=== PATIENT | male | born 1990 | race African-American/Black ===

== ENCOUNTER 2018-08-24 10:10 | Emergency (ER) | payer OTHER ==
[~2018-08-24] VITALS: Ht 175.3 cm; Wt 56.7 kg
[2018-08-24 10:40] LABS: URINE BILIRUBIN NEGATIVE (Negative); URINE BLOOD NEGATIVE (Negative); URINE CLARITY CLEAR; URINE COLOR YELLOW; URINE GLUCOSE-RANDOM NEGATIVE (Negative); URINE KETONES NEGATIVE (Negative); URINE LEUKOCYTES-REFLEX NEGATIVE (Negative); URINE NITRITE-REFLEX NEGATIVE (Negative); URINE PROTEIN TRACE (Negative); URINE SPECIFIC GRAVITY 1.015 (1.005-1.030)
[2018-08-24 10:42] LABS: ABSOLUTE BASOPHILS 0.1 thou/uL (0.0-0.2); ABSOLUTE EOSINOPHILS 0.1 thou/uL (0.0-0.7); ABSOLUTE LYMPHOCYTES 1.3 thou/uL (0.8-5.3); ABSOLUTE MONOCYTES 0.4 thou/uL (0.0-1.2); ABSOLUTE NEUTROPHILS 2.3 thou/uL (1.6-8.1); BASOPHILS 1.9 %; EOSINOPHILS 1.9 %; HEMATOCRIT 43.4 % (42.0-52.0); HEMOGLOBIN 14.7 gm/dL (14.0-18.0); LYMPHOCYTES 31.1 %; MCH 29.4 pg (26.0-34.0); MCHC 33.8 g/dL (28.0-37.0); MONOCYTES 9.7 %; MPV 7.3 fl. (7.2-11.1); NUCLEATED RBCS 0 /100WBC; PLATELET COUNT* 243 thou/uL (150-400); POLYS 55.4 %; RBC 4.99 mil/uL (4.50-6.00); RDW-CV 13.1 % (10.5-14.5); WBC 4.1 thou/uL (4.0-11.0)
[2018-08-24 10:54] LABS: INFLUENZA A ANTIGEN None Detected (None Detect); INFLUENZA B ANTIGEN None Detected (None Detect)
[2018-08-24 11:02] LABS: ALBUMIN 3.8 g/dL (3.4-5.0); CREATININE 1.1 mg/dL (0.6-1.3); POTASSIUM 3.7 mmol/L (3.5-5.1); TOTAL BILIRUBIN 0.4 mg/dL (<0.1-1.0); TOTAL PROTEIN 7.2 g/dL (6.4-8.2)
[2018-08-24] MEDS ORDERED: ONDANSETRON HCL4 M2 PO (11:32)
[2018-08-24] MEDS ORDERED: ACETAMINOPHEN-1 EAC1 PO (11:32)
[2018-08-24] MEDS ORDERED: NAPROSYN500 MG PO (11:32)
[2018-08-24 11:45] VITALS: BP 101/59
== END 2018-08-24 11:45 | disposition home or self-care (01) ==
LOC: M.ERS 10:10
PROVIDERS: Physician Assistant
DX: B34.9 Viral infection, unspecified (principal); R10.31 Right lower quadrant pain; Z91.02 Food additives allergy status

== ENCOUNTER 2019-01-10 16:44 | Emergency (ER) | payer OTHER ==
[~2019-01-10] VITALS: Ht 175.3 cm; Wt 56.7 kg
[~2019-01-10 16:44] MED LIST: ACETAMINOPHEN-1 EAC1 PO; NAPROSYN500 MG PO; ONDANSETRON HCL4 M2 PO
[2019-01-10 16:53] VITALS: BP 114/65
[2019-01-10] MEDS ORDERED: DOXYCYCLINE 10100 MG PO (17:00)
== END 2019-01-10 17:13 | disposition home or self-care (01) ==
LOC: M.ERS 16:44
DX: L03.312 Cellulitis of back [any part except buttock and flank] (principal); L02.212 Cutaneous abscess of back [any part, except buttock and flank]; Z91.018 Allergy to other foods

== ENCOUNTER 2021-08-22 09:39 | Emergency (ER) | payer OTHER ==
[~2021-08-22] VITALS: Ht 175.3 cm; Wt 61.2 kg
[~2021-08-22 09:39] MED LIST changes: +DOXYCYCLINE 10100 MG PO
[2021-08-22] MEDS ORDERED: SUPRAX400 M1 PO (10:29)
[2021-08-22] MEDS ORDERED: DOXYCYCLINE 10100 MG PO (10:29)
[2021-08-22 10:39] LABS: URINE BILIRUBIN NEGATIVE (Negative); URINE BLOOD NEGATIVE (Negative); URINE CLARITY CLEAR; URINE COLOR YELLOW; URINE GLUCOSE-RANDOM NEGATIVE (Negative); URINE KETONES NEGATIVE (Negative); URINE LEUKOCYTES-REFLEX 1+ (Negative); URINE NITRITE-REFLEX NEGATIVE (Negative); URINE PROTEIN NEGATIVE (Negative); URINE UROBILINOGEN 0.2 E.U./dl (0.2-1.0)
[2021-08-22 10:45] LABS: BACTERIA-REFLEX >30 Many /HPF (None Seen); CASTS None Seen /LPF (None Seen); CRYSTALS None Seen /LPF (None Seen); MUCUS 4-6 Moderate strn/LPF (None Seen); SQUAMOUS NONE SEEN /LPF (0-3); URINE RBC None Seen /HPF (0-2); URINE WBC-REFLEX >25 Many /HPF (0-5); WBC CLUMPS Few (None Seen)
[2021-08-22] MEDS ORDERED: BACTRIM DS TAB1 EACH PO (10:54)
[2021-08-22 11:37] VITALS: BP 135/85
== END 2021-08-22 11:37 | disposition home or self-care (01) ==
LOC: M.ERS 09:39
PROVIDERS: Physician Assistant
DX: N39.0 Urinary tract infection, site not specified (principal); R36.9 Urethral discharge, unspecified; Z91.018 Allergy to other foods